=== PATIENT | female | born 1980 | race Caucasian/White ===

== ENCOUNTER 2021-04-17 13:18 | Emergency (ER) | payer MEDICARE, MEDICAID ==
[~2021-04-17] VITALS: Ht 165.1 cm; Wt 149.7 kg
[2021-04-17 13:25] VITALS: BP 130/82
[2021-04-17] MEDS ORDERED: CORTISPORIN OTI10 M2 OTIC (13:52)
== END 2021-04-17 13:59 | disposition home or self-care (01) ==
LOC: M.ERS 13:18
DX: H92.02 Otalgia, left ear (principal)